=== PATIENT | male | born 1930 | race Caucasian/White ===

== ENCOUNTER → 2017-02-27 | Outpatient (CLI) | payer MEDICARE, BC | END | disposition home or self-care (01) | LOC: PUL 11:02 | PROVIDERS: ATTEND Internal Medicine Rheumatology | DX: M34.1 CR(E)ST syndrome (principal); J84.9 Interstitial pulmonary disease, unspecified; I27.20 Pulmonary hypertension, unspecified | CPT/HCPCS: 94010; 94726; 94729 ==